=== PATIENT | female | born 1970 | race Caucasian/White ===

== ENCOUNTER → 2024-08-06 | Outpatient (CLI) | payer OTHER, SELFPAY ==
[2024-08-06 10:09] LABS: Absolute Neutrophil Count 4.2 X10^3/uL (2.0-7.7); Basophil# 0.03 X10^3/uL; Basophil% 0.5 % (0-1); Eosinophil# 0.11 X10^3/uL; Eosinophils% 1.8 % (0-5); Hematocrit 42.3 % (37-47); Hemoglobin 13.5 g/dL (12.0-15.0); Lymphocyte % 22.6 % (19-41); Mean Corp Hgb Conc 31.9 g/dL (32-36); Mean Corpuscular Hgb 28.4 pg (27.0-32.0); Mean Corpuscular Volume 89.1 fL (81-99); Mean Platelet Vol. 10.1 fl (6.2-12.0); Monocyte# 0.41 X10^3/uL; Monocyte% 6.6 % (0-10); NRBC Flagged by Analyzer 0 % (0-5); Neutrophil # 4.22 X10^3/uL (2.7-7.7); Neutrophil % 68.2 % (47-70); Platelet Count 228 K/mm3 (150-450); RBC Distribution Width CV 12.3 % (11.6-14.6); RBC Distribution Width SD 40.6 fl (35.1-43.9); Red Blood Count 4.75 M/mm3 (4.2-5.4); White Blood Count 6.2 K/mm3 (4.4-11.0)
[2024-08-06 11:11] LABS: HIV - WCH Non-Reactive (Nonreactive); Syphilis Antibodies Non-reactive
[2024-08-06 11:32] LABS: ALB/GLOB Ratio 0.9 RATIO (0.9-2.4); AST(SGOT) 12 U/L (15-37); Alanine Aminotransfer ALT/SGPT 13 U/L (13-56); Albumin, Serum 3.7 g/dL (3.2-5.0); Alkaline Phosphatase 96 U/L (45-117); Anion Gap 7 (5-15); BUN 19 mg/dL (7-18); BUN/Creat Ratio 29.9 RATIO (10-20); Calcium,Total 9.7 mg/dL (8.5-10.1); Chloride 104 mmol/L (98-107); Cholesterol 185 mg/dL (200); Creatinine, Serum 0.64 mg/dL (0.55-1.02); EST Glomerular Filtration Rate 103 mL/min (>60); Est Glom Filt Rate - Afr Amer 125 mL/min (>60); Globulin 4.1 g/dL (2.2-4.2); Glucose 91 mg/dL (74-106); High Density Lipoprotein 66 mg/dL; Potassium 3.9 mmol/L (3.5-5.1); Protein, Total 7.8 g/dL (6.4-8.2); Sodium Level 136 mmol/L (136-145); Triglycerides 62 mg/dL; Very Low Density Lipoprotein 12 mg/dL (5-40)
[2024-08-06 12:08] LABS: Hemoglobin A1c 5.2 % (3.8-5.6)
[2024-08-08 05:07] LABS: HEPATITIS B SURFACE AG Negative (Negative); Hep B Surface Antibodies Reactive (.); Hepatitis B Core Ab Total Positive (Negative); Hepatitis C Ab Non Reactive (Non Reactive)
== END | disposition home or self-care (01) ==
PROVIDERS: PCP Nurse Practitioner Family; Referring Provider Nurse Practitioner Family; Visit Provider Nurse Practitioner Family
DX: Z01.419 Encounter for gynecological examination (general) (routine) without abnormal findings (principal); R03.0 Elevated blood-pressure reading, without diagnosis of hypertension; Z11.3 Encounter for screening for infections with a predominantly sexual mode of transmission
CPT/HCPCS: 36415; 80053; 80061; 83036; 84443; 85025; 86703; 86704; 86705; 86706; 86707; 86780; 86803; 87340; 87350; 87491; 87591

== ENCOUNTER → 2025-03-02 | Outpatient (CLI) | payer OTHER, SELFPAY ==
[2025-03-02 10:52] LABS: Absolute Lymphocyte Count 1.55 X10^3/uL (0.83-4.51); Absolute Neutrophil Count 3.6 X10^3/uL (2.0-7.7); Basophil# 0.05 X10^3/uL; Basophil% 0.9 % (0-1); Eosinophil# 0.08 X10^3/uL; Eosinophils% 1.4 % (0-5); Hematocrit 40.2 % (37-47); Hemoglobin 13.2 g/dL (12.0-15.0); Lymphocyte # 1.55 X10^3/ul (0.83-4.51); Lymphocyte % 27.2 % (19-41); Mean Corp Hgb Conc 32.8 g/dL (32-36); Mean Corpuscular Hgb 28.5 pg (27.0-32.0); Mean Corpuscular Volume 86.8 fL (81-99); Mean Platelet Vol. 10.1 fl (6.2-12.0); Monocyte# 0.37 X10^3/uL; Monocyte% 6.5 % (0-10); NRBC Flagged by Analyzer 0 % (0-5); Neutrophil # 3.62 X10^3/uL (2.7-7.7); Neutrophil % 63.6 % (47-70); Platelet Count 251 K/mm3 (150-450); RBC Distribution Width SD 38.5 fl (35.1-43.9); Red Blood Count 4.63 M/mm3 (4.2-5.4); White Blood Count 5.7 K/mm3 (4.4-11.0)
[2025-03-02 12:49] LABS: ALB/GLOB Ratio 1.5 RATIO (0.9-2.4); AST(SGOT) 16 U/L (<=31); Alanine Aminotransfer ALT/SGPT 7 U/L (<=34); Albumin, Serum 4.2 g/dL (3.5-5.0); Alkaline Phosphatase 77 U/L (35-104); Anion Gap 8 (5-15); BUN 15 mg/dL (4-19); BUN/Creat Ratio 23.5 RATIO (10-20); Calcium,Total 9.2 mg/dL (7.6-11.0); Carbon Dioxide 27.5 mmol/L (21.0-32.0); Chloride 104 mmol/L (98-108); Creatinine, Serum 0.62 mg/dL (0.70-1.20); EST Glomerular Filtration Rate 104 (>60); Globulin 2.7 g/dL (2.2-4.2); Glucose 93 mg/dL (70-99); Potassium 4.7 mmol/L (3.3-5.1); Protein, Total 6.9 g/dL (5.9-8.4); Sodium Level 139 mmol/L (133-145); Total Bilirubin 0.33 mg/dL (0.00-1.30)
== END | disposition home or self-care (01) ==
LOC: LAB 10:28
PROVIDERS: PCP Nurse Practitioner Family
DX: I10 Essential (primary) hypertension (principal)
CPT/HCPCS: 36415; 80053; 85025

== ENCOUNTER → 2025-09-16 | Outpatient (CLI) | payer OTHER, SELFPAY ==
[2025-09-16 16:34] LABS: Hematocrit 40.5 % (37-47); Hemoglobin 13.7 g/dL (12.0-15.0); Immature Granulocytes Count 0.020 X10^3/uL (0.0-0.0); Mean Corp Hgb Conc 33.8 g/dL (32-36); Mean Corpuscular Volume 86.2 fL (81-99); Mean Platelet Vol. 10.6 fl (6.2-12.0); NRBC Flagged by Analyzer 0 % (0-5); Platelet Count 288 K/mm3 (150-450); RBC Distribution Width CV 12.4 % (11.6-14.6); RBC Distribution Width SD 39.1 fl (35.1-43.9); Red Blood Count 4.70 M/mm3 (4.2-5.4); White Blood Count 7.3 K/mm3 (4.4-11.0)
[2025-09-16 17:18] LABS: AST(SGOT) 19 U/L (<=31); Alanine Aminotransfer ALT/SGPT 9 U/L (<=34); Albumin, Serum 4.6 g/dL (3.5-5.0); Alkaline Phosphatase 72 U/L (35-104); Anion Gap 11 (5-15); BUN 13 mg/dL (4-19); BUN/Creat Ratio 18.7 RATIO (10-20); Calcium,Total 10.1 mg/dL (7.6-11.0); Carbon Dioxide 26.3 mmol/L (21.0-32.0); Chloride 99 mmol/L (98-108); Cholesterol 202 mg/dL (<=200); Globulin 3.0 g/dL (2.2-4.2); Glucose 93 mg/dL (70-99); Low Density Lipoprotein Calc. 120 mg/dL; Potassium 4.3 mmol/L (3.3-5.1); Triglycerides 73 mg/dL; Very Low Density Lipoprotein 15 mg/dL (5-40); cholesterol:hdl ratio screen 3.01
== END | disposition home or self-care (01) ==
LOC: VSLAB 15:38
PROVIDERS: PCP Nurse Practitioner Family; Visit Provider Nurse Practitioner Family
DX: I10 Essential (primary) hypertension (principal)
CPT/HCPCS: 36415; 80053; 80061; 84443; 85025

== ENCOUNTER 2025-09-23 11:31 | Outpatient (CLI) | payer OTHER, SELFPAY | END 2025-09-23 23:59 | disposition home or self-care (01) | LOC: LABSPEC 11:32 | PROVIDERS: PCP Nurse Practitioner Family; Visit Provider Surgery | DX: C44.519 Basal cell carcinoma of skin of other part of trunk (principal) | CPT/HCPCS: 88305 ==

== ENCOUNTER → 2025-10-07 | Outpatient (CLI) | payer OTHER, SELFPAY | END | disposition home or self-care (01) | PROVIDERS: PCP Nurse Practitioner Family; Referring Provider Surgery; Visit Provider Surgery | DX: C44.519 Basal cell carcinoma of skin of other part of trunk (principal); L73.8 Other specified follicular disorders | CPT/HCPCS: 88305 ==

== ENCOUNTER → 2025-11-11 | Outpatient (CLI) | payer OTHER, SELFPAY ==
--- NOTE | 2025-11-11 11:00 | LES_PTH ---
PATIENT: ZOIE LOWERY LOC: [facility] U#:[id number] AGE/SX: 55/F ROOM: RE11/11/[address]: Dr. Camron Lal [facility], : 1970 BED: DIS: 11/11/2025 SPEC #: [id number] RECD: 11/11/25 15:05 STATUS: IZAIAH JOHNNY #: [id number] CHADD: 11/11/25 11:[address]: Camron Lal [facility] DEPT: SURGICAL PATHOLOGY RECD BY: Brandan Harrell ENTERED: 11/12/25 10:34 SP TYPE: Lesion OTHR DR: Ayanna England, [facility], [employer]-C Tissues: A - Forehead, NOS Procedures: Surgery Specimen Level IV HEADER OPERATION: Excision left forehead skin lesion PRE-OP DIAGNOSIS: Basal cell skin cancer TISSUE SUBMITTED: A- Skin lesion left forehead *suture in inferior margin* MICROSCOPIC DIAGNOSIS A. Skin, forehead, left, lesion, excision: - Nodular basal cell carcinoma, ulcerated, margins free. - Tumor invades the subcutis. - No lymphovascular invasion identified. MICROSCOPIC DESCRIPTION Slides are reviewed. GROSS DESCRIPTION A. Received in formalin labeled with the patient's name and date of is a 3.9 x 1.6 cm lorenzo skin ellipse excised to a maximum depth of 0.4 cm and with orientation as follows:Single suture: designated as inferior, redesignated as 6:00 per the grossing PA. There is a 2.0 x 1.2 cm lorenzo-a white, ulcerative, raised to somewhat fibrotic lesion with irregular borders, located the following distances from the margins: 12:00: 1.0 cm 3:00: 0.3 cm 6:00 (inferior): 0.9 cm9:00: 0.3 cmDeep: <0.1 cm Ink staley: 12:00 to 3:00: Green3:00 to 6:00: Yellow6:00 to 9:00: Orange9:00 to 12:00: BlueDeep: Black The specimen is serially sectioned from 12:00 to 6:00 (inferior), and entirely submitted, sequentially in 4 cassettes. [place] 11/12/2025 CPT:97995
== END | disposition home or self-care (01) ==
LOC: LABSPEC 15:31
PROVIDERS: PCP Nurse Practitioner Family; Referring Provider Surgery; Visit Provider Surgery
DX: C44.91 Basal cell carcinoma of skin, unspecified (principal)
CPT/HCPCS: 88305